=== PATIENT | female | born 1995 | race Caucasian/White ===

== ENCOUNTER 2017-06-25 10:20 | Emergency (ER) | payer BC ==
[2017-06-25 10:38] VITALS: BP 125/66
--- NOTE | 2017-06-25 10:50 | UC ---
Complaint Female HPI - HPI Summary HPI Summary: Pt presents with c/o of irregular menstrual bleeding. Pt began her OCP pills two days after schedule start date in May and now reports irregular menstrual bleeding with spotting post intercourse and with intermittent abnormal heavy bleeding - History Of Current Complaint Chief Complaint: UCGI Stated Complaint: HEADACHE STOMACH PAIN/ABNORMAL MENTRUAL Time Seen by Provider: 06/25/17 10:27 Hx Obtained From: Patient Hx Last Menstrual Period: 06/13/17 ?: No Onset/Duration: Sudden Onset, Lasting Days Timing: Intermittent Severity Initially: Mild Severity Currently: None Aggravating Factor(s): [place] - Risk Factors Ectopic Risk Factor: Negative Ovarian Torsion Risk Factor: Reproductive Age - Allergies/Home Medications Allergies/Adverse Reactions: Allergies Allergy/AdvReac Type Severity Reaction Status Date / Time No Known Allergies Allergy Verified 06/25/17 10:28 Home Medications: Home Medications Amphetamine MIXED SALTS TAB* [Adderall TAB*] 20 mg DAILY 06/25/17 [History Confirmed 06/25/17] Control Med 1 tab DAILY 06/25/17 [History Confirmed 06/25/17] Levothyroxine TAB* [Synthroid TAB*] 25 mcg DAILY 06/25/17 [History Confirmed 03/06] PMH/Surg Hx/FS Hx/Imm Hx Previously Healthy: Yes - Surgical History Surgical History: None - Family History Known Family History: Positive: Cardiac Disease - Social History Occupation: Student - [employer] [place] Lives: Dormitory/Roommates Alcohol Use: None Substance Use Type: None Smoking Status (MU): Never Smoked Tobacco Have You Smoked in the Last Year: No - Immunization History Most Recent Influenza Vaccination: 06/24/17 Review of Systems Constitutional: Negative Skin: Negative Eyes: Negative ENT: Negative Respiratory: Negative Cardiovascular: Negative Gastrointestinal: Other - irregular uterine bleeding Genitourinary: Abnormal Bleeding Motor: Negative Neurovascular: Negative Musculoskeletal: Negative Neurological: Negative Psychological: Negative Is Patient Immunocompromised?: No All Other Systems Reviewed And Are Negative: Yes Physical Exam Triage Information Reviewed: Yes Appearance: Well-Appearing Vital Signs: Initial Vital Signs Temp 98.3 F 06/25/17 10:30 Pulse 104 06/25/17 10:30 Resp 16 06/25/17 10:30 BP 125/66 06/25/17 10:30 Pulse Ox 100 06/25/17 10:30 Vital Signs Reviewed: Yes Eye Exam: Normal ENT Exam: Normal Dental Exam: Normal Neck exam: Normal Respiratory Exam: Normal Cardiovascular Exam: Normal Abdominal Exam: Normal Musculoskeletal Exam: Normal Neurological Exam: Normal Psychological Exam: Normal Skin Exam: Normal Complaint Female Dx - Course Course Of Treatment: I disucssed with the pt the need to follow up with her baker operator automatic provider as soon as possible. I also discussed demond correct use of OCP and asked for the pt verbalize undersstsanding and aagree to plan of care. 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
== END 2017-06-25 11:00 | disposition home or self-care (01) ==
LOC: UCCORT 10:20
DX: N93.8 Other specified abnormal uterine and vaginal bleeding (principal)
CPT/HCPCS: 99201; G0463